=== PATIENT | female | born 1975 ===

== ENCOUNTER 2021-07-11 15:49 | Emergency (ER) | payer SELFPAY ==
--- NOTE | ~2021-07-11 | US_ITS ---
EXAMINATION: US venous doppler [facility] DATE: 07/11/2021 16:37 INDICATION: Left lower limb pain after 11 hours slight TECHNIQUE: Grayscale ultrasound images without and with compression and Doppler ultrasound images of the left lower extremity veins were obtained. COMPARISON: None. FINDINGS: The visualized portions of left common femoral vein, profunda (deep) femoral vein, femoral vein, popl iteal vein, peroneal veins, posterior tibial veins, gastrocnemius vein and greater saphenous vein out flow are patent. IMPRESSION: 1. No deep venous thrombosis in the left lower limb. Reviewed, dictated and finalized at location A. [facility]
[2021-07-11 16:07] VITALS: BP 111/66; PULSE 80; RESP 14; TEMP 36.5; O2SAT 100
--- NOTE | 2021-07-11 17:18 | ED.EXTPRO ---
HPI - Extremity Problem General Chief complaint: Extremity Problem,Nontraumatic Stated complaint: left leg pain Time Seen by Provider: 07/11/21 16:47 History of Present Illness HPI Narrative: Patient is a 45-year-old female who presents ER with cramping to her left leg. Patient recently returned to the [place] from [place]. She is on an 11-hour flight. She has history of DVT and is concerned she may have developed another one. She is not currently on blood thinner. No chest pain or shortness of breath. No lower extremity swelling or redness. 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 Social History Social History (Updated 07/11/21 @ 17:25 by Marv Kunz MD) Smoking status: Never smoker Exam Narrative: GENERAL: Well-appearing, well-nourished, and in no acute distress. HEAD: Normocephalic, atraumatic. CHEST: Clear to auscultation. No respiratory distress. HEART: Regular rate and rhythm. Normal peripheral pulses. EXTREMITIES: Normal range of motion. No edema. SKIN: Warm, dry, no rash. NEURO: Alert and oriented x3. PSYCH: Normal mood and affect. Course Course Emergency Course: Informed results. No clinical evidence of DVT. Discharge Vital Signs Vital signs: Vital Signs Temperature 97.7 F 07/11/21 16:07 Pulse Rate 80 07/11/21 16:07 Respiratory Rate 14 07/11/21 16:07 Blood Pressure 111/66 07/11/21 16:07 Pulse Oximetry 100 07/11/21 16:07 Temperature 97.7 F 07/11/21 16:07 Pulse Rate 80 07/11/21 16:07 Respiratory Rate 14 07/11/21 16:07 Blood Pressure 111/66 07/11/21 16:07 Pulse Oximetry 100 11/19/21 16:07 MDM - Extremity (Nontraumatic) Imaging Data Radiologist's impression: ITS Impressions Venous Doppler Study 07/11/21 16:38 IMPRESSION: 1. No deep venous thrombosis in the left lower limb. Discharge Plan Discharge Clinical Impression: Cramps of left lower extremity Patient Disposition: Home, Self-Care Condition: Stable Instructions: Leg Cramps (ED) Additional Instructions: Return the ER if you have chest pain or shortness of breath, you cannot keep down food or water, you lose consciousness, you have additional concerns. Follow-up/Referrals: PHYSICIAN NOT ON STAFF,NONSTAFF [Primary Care Provider] - 1 Week
== END 2021-07-11 18:02 | disposition home or self-care (01) ==
LOC: ANHED 17:56
PROVIDERS: Emergency Provider Emergency Medicine
DX: R25.2 Cramp and spasm (principal); Z86.718 Personal history of other venous thrombosis and embolism
CPT/HCPCS: 93971; 99284